=== PATIENT | female | born 1985 | race African-American/Black ===

== ENCOUNTER 2017-10-08 05:44 | Emergency (ER) | payer OTHER ==
[2017-10-08 06:01] VITALS: BMI 29.2
[2017-10-08] MEDS ORDERED: ALBUTEROL SO4 0.083% IH SOL 2.5 MG/3 ML VIAL.NEB. NEB ONE ×2 (06:05→06:09)
--- NOTE | 2017-10-08 06:20 | PDOC ---
History of Present Illness - General History Source: Patient Exam Limitations: No Limitations <Kavita Stein I - Last Filed: 10/08/17 06:25> - History of Present Illness Initial Comments: 10/08/17 06:56 Patient is a 32 year old female, that is 31 weeks with a significant past medical history of Asthma who presents to the ED with complaints of difficulty breathing that began earlier this morning. Patient reports waking up this morning and experiencing Sob, prompting her to call EMS and be brought to the ED for further evaluation. She reports being taken to [facility], stating she was told should could not be treated due to them not being a OB hospital followed transferring the patient to [facility]. Patient reports experiencing associated symptoms of dry non productive cough. 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 Denies chest pain, fevers, hills. Denies contact with sick individuals, out of state travelling. Denies dysuria, hematuria. Denies diarrhea, constipation. Denies any other symptoms. Allergies: None Social history: Former smoker. No alcohol. No illicit drugs. Surgical history: None PMD: Dr. Rooney Adult PE General: +Mild distress. Well-nourished well-developed individual, HEENT: Throat: Normal, tonsils normal, no erythema or exudate Neck: Supple, no meningeal signs, no lymphadenopathy Eyes::Pupils equal reactive and round, extraocular motion intact Chest: +Mild diffuse wheezing. +Tachypnic. Nontender to palpation Cardiac: S1-S2 normal, regular rate and rhythm, no murmurs rubs or gallops Respiratory: +Coughing. Lungs clear to auscultation bilateral Abdomen: +Abdomen gravid uterus consistent with 31 week . Soft, nondistended, normal bowel sounds, nontender to palpation diffusely Extremities: Warm, dry, no cyanosis, clubbing, or edema Skin: No rashes Neuro: Alert and oriented x3, nonfocal exam, grossly intact, normal gait Psych: Normal mood and affect <Rafal Espinoza - Last Filed: 10/08/17 06:57> - General Chief Complaint: Chest Pain Stated Complaint: SOB Time Seen by Provider: 10/08/17 06:10 Past History - Past Medical History Asthma: No Cancer: No Cardiac Disorders: No CVA: No COPD: No Diabetes: No HTN: No Seizures: No Thyroid Disease: No - Reproductive History Is Patient Now?: Yes (#): 4 Para: 1 Spontaneous : 1 - Suicide/Smoking/Psychosocial Hx Smoking History: Never smoked Have you smoked in the past 12 months: No Number of Cigarettes Smoked Daily: 2 Information on smoking cessation initiated: No Hx Alcohol Use: No Drug/Substance Use Hx: No Hx Substance Use Treatment: No <Kavita Stein I - Last Filed: 10/08/17 06:25> <Rafal Espinoza - Last Filed: 10/08/17 06:57> - Past Medical History Allergies/Adverse Reactions: Allergies Allergy/AdvReac Type Severity Reaction Status Date / Time No Known Allergies Allergy Verified 10/08/17 06:00 Home Medications: Ambulatory Orders Vitamins (Sjr) - 1 tab PO DAILY tablet 01/17/15 Albuterol Sulfate [Proventil HFA Inhaler -] 1 - 2 inh PO QID #1 inhaler Azithromycin 250 mg PO DAILY #4 tablet 10/08/17 Prednisone [Deltasone] 20 mg PO DAILY #8 tablet 10/08/17 *Physical Exam - Vital Signs Last Vital Signs Temp Pulse Resp BP Pulse Ox 103 H 20 108/64 95 10/08/17 06:00 10/08/17 06:00 10/08/17 06:00 10/08/17 06:00 <Kavita Stein I - Last Filed: 10/08/17 06:25> - Vital Signs Last Vital Signs Temp Pulse Resp BP Pulse Ox 103 H 20 108/64 95 10/08/17 06:00 10/08/17 06:00 10/08/17 06:00 10/08/17 06:00 <Rafal Espinoza - Last Filed: 10/08/17 06:57> ED Treatment Course - Medications Given in the ED: ED Medications Discontinued Medications Generic Name Dose Route Start Last Admin Trade Name Freq PRN Reason Stop Dose Admin Albuterol Sulfate 1 amp 10/08/17 06:05 10/08/17 06:11 Ventolin 0.083% Nebulizer Soln - NEB 10/08/17 06:06 1 amp ONCE ONE Administration <Kavita Stein Jon - Last Filed: 10/08/17 06:25> - Medications Given in the ED: ED Medications Discontinued Medications Generic Name Dose Route Start Last Admin Trade Name Lizandro PRN Reason Stop Dose Admin Albuterol Sulfate 1 amp 10/08/17 06:05 10/08/17 06:11 Ventolin 0.083% Nebulizer Soln - NEB 10/08/17 06:06 1 amp ONCE ONE Administration <Rafal Espinoza - Last Filed: 10/08/17 06:57> *DC/Admit/Observation/Transfer <Kavita Stein I - Last Filed: 10/08/17 06:25> <Rafal Espinoza - Last Filed: 10/08/17 06:57> Diagnosis at time of Disposition: Asthmatic bronchitis Qualifiers: Asthma severity: mild Asthma persistence: intermittent Asthma complication type : uncomplicated Qualified Code(s): J45.20 - Mild intermittent asthma, uncomplicated - Discharge Dispostion Disposition: HOME - Prescriptions Prescriptions: Albuterol Sulfate [Proventil HFA Inhaler -] 1 - 2 inh PO QID #1 inhaler Azithromycin 250 mg PO DAILY #4 tablet Prednisone [Deltasone] 20 mg PO DAILY #8 tablet - Patient Instructions Additional Instructions: Use your albuterol inhaler 2 puffs as often as every 4-6 hours if needed for wheezing or shortness of breath. Take the prednisone 40 mg a day for 4 days. I'm starting you on a Z-Rm to make sure you don't develop bronchitis secondary to your asthma exacerbation. Return to the emergency department immediately with ANY new, persistent or worsening symptoms. Continue any medications as previously prescribed by your physician. You should follow up with your primary doctor as soon as possible regarding today's emergency department visit. . Please make sure your doctor reviews the results of your emergency evaluation. Thank you for coming to the Emergency Department today for your care. It was a pleasure to see you today. Please note that your evaluation is INCOMPLETE until you follow-up with your doctor.
[2017-10-08] MEDS ORDERED: predniSONE 20 MG TABLET (UD) PO ONE (06:21)
[2017-10-08] MEDS ORDERED: AZITHROMYCIN 250 MG TABLET PO STA (06:22)
[2017-10-08] MEDS ORDERED: predniSONE 20 MG TABLET (UD) ONE (06:54)
[2017-10-08] MEDS ORDERED: AZITHROMYCIN 250 MG TABLET ONE (06:54)
[2017-10-08 08:08] VITALS: BP 103/63; PULSE 107; TEMP 98.2
--- NOTE | 2017-10-13 10:38 | EKG ---
Test Reason : Blood Pressure : / mmHG Vent. Rate : 097 BPM Atrial Rate : 097 BPM P-R Int : 154 ms QRS Dur : 080 ms QT Int : 342 ms P-R-T Axes : 069 065 042 degrees QTc Int : 434 ms NORMAL SINUS RHYTHM NORMAL ECG NO PREVIOUS ECGS AVAILABLE Confirmed by CODY ANTHONY, IVORY ([id number]) on 10/13/2017 10:37:41 AM Referred By: Confirmed By:IVORY ROSS MD
== END 2017-10-08 08:25 | disposition home or self-care (01) ==
LOC: JER 05:44
PROC: 3E0F7GC Introduction of Other Therapeutic Substance into Respiratory Tract, Via Natural or Artificial Opening (ICD-10-PCS; principal; 2017-10-08)
DX: O26.893 Other specified pregnancy related conditions, third trimester (principal); O99.513 Diseases of the respiratory system complicating pregnancy, third trimester; J45.20 Mild intermittent asthma, uncomplicated; Z3A.31 31 weeks gestation of pregnancy
CPT/HCPCS: 93005; 93010; 99281-25

== ENCOUNTER 2017-12-11 02:40 | Inpatient (IN) | payer OTHER ==
[~2017-12-11 02:40] MED LIST: CITRIC ACID/SODIUM CITRATE 30 ML UNIT-DOSE CUP PO ONE; ELECTROLYTE-148 SOLN 500 ML IV ONE
[2017-12-11] MEDS ORDERED: ELECTROLYTE-148 SOLN 1,000 ML IV SCH (03:10)
[2017-12-11] MEDS ORDERED: SUCCINYLCHOLINE CHLORIDE 200 MG/10 ML VIAL ONE (04:32)
[2017-12-11] MEDS ORDERED: PROPOFOL 20 ML ONE (04:32)
[2017-12-11] MEDS ORDERED: morphine SULFATE/Preservative Free 0.5 MG/ML (1cc Syringe) ONE (04:33)
[2017-12-11] MEDS ORDERED: SODIUM CHLORIDE 0.9% P/F 10 ML VIAL IJ ONE (04:45)
[2017-12-11] MEDS ORDERED: ceFAZolin SODIUM 1 GM VIAL ONE ×3 (04:45→18:25)
[2017-12-11] MEDS ORDERED: OXYTOCIN 10 UNITS/ML VIAL ONE (04:46)
[2017-12-11] MEDS ORDERED: KETOROLAC TROMETHAMINE 30 MG/1 ML VIAL ONE (04:48)
[2017-12-11] MEDS ORDERED: ePHEDrine SULFATE 50 MG/1 ML AMPULE ONE (04:49)
[2017-12-11 04:50] LABS: BASO % 0.1 % (0-2.0); MCH 32.8 pg (25.7-33.7); MCHC 34.4 g/dl (32.0-36.0); MEAN CELL VOLUME 95.3 fl (80-96); MEAN PLT VOLUME 8.4 fl (7.5-11.1); MONO % 5.4 % (3.8-10.2); NEUT % 74.5 % (42.8-82.8); PLATELET COUNT 222 K/MM3 (134-434); RBC 3.67 M/mm3 (3.60-5.2); RDW 13.8 % (11.6-15.6); WHITE BLOOD COUNT 10.7 K/mm3 (4.0-10.0)
[2017-12-11 04:52] VITALS: BMI 25.9
[2017-12-11 05:04] LABS: INR 0.92 (0.83-1.09); PROTHROMBIN TIME (PATIENT) 10.9 SEC (9.7-13.0)
[2017-12-11 05:20] LABS: ALK PHOS 143 U/L (45-117); ANION GAP 5 MMOL/L (8-16); BILIRUBIN,TOTAL 0.3 mg/dL (0.2-1); BLOOD UREA NITROGEN 8 mg/dL (7-18); CALCIUM 8.7 mg/dL (8.5-10.1); CHLORIDE 108 mmol/L (98-107); CO2 21 mmol/L (21-32); CREATININE 0.6 mg/dL (0.55-1.3); GLUCOSE,RANDOM 111 mg/dL (74-106); POTASSIUM 3.4 mmol/L (3.5-5.1); SGOT/AST 24 U/L (15-37); SGPT/ALT 31 U/L (13-61); SODIUM 135 mmol/L (136-145); TOT PROT 6.2 g/dl (6.4-8.2)
[2017-12-11] MEDS ORDERED: OXYTOCIN 20 UNITS in 0.9% NS 20 UNIT/1,000 ML INFUS.BAG IV ONE ×2 (05:20→09:53)
[2017-12-11] MEDS ORDERED: WITCH HAZEL 50% (TUCKS) 40 PAD/JAR PAD TP PRN (05:26)
[2017-12-11] MEDS ORDERED: METHYLERGONOVINE MALEATE 0.2 MG/1 ML AMP IM PRN (05:26)
[2017-12-11] MEDS ORDERED: BENZOCAINE 28 GM HEMORRHOIDAL OINTMENT PR PRN (05:26)
[2017-12-11] MEDS ORDERED: BENZOCAINE 20% 57 GM BOTTLE TP PRN (05:26)
[2017-12-11] MEDS ORDERED: diphenhydrAMINE HCL 25 MG CAPSULE (FP) PO PRN (05:26)
[2017-12-11] MEDS ORDERED: DEXTROSE 5%-LACTATED RINGERS 1,000 ML IV SCH (05:30)
[2017-12-11] MEDS ORDERED: OXYTOCIN 20 UNITS in 0.9% NS 20 UNIT/1,000 ML INFUS.BAG IV SCH (05:30)
--- NOTE | 2017-12-11 05:38 | HP ---
Past Medical History - Primary Care Physician PCP:: iMo Pro - Admission Chief Complaint: 40.5 weeks, labor , non reassuring heart History of Present Illness: 32 yo f g 8 [id number] edc by sono 12/06/17 40.5 weeks in labor, heart cat 2., poor BTB variability, tachy 160. contraction q 1 min,,cx 4 cm 80 vx -2 mi , no bleeding, no fever History Source: Patient Limitations to Obtaining History: No Limitations - Past Medical History Pulmonary: Yes: Asthma ...: 7 ...Para: 1 ...Term: 1 ...: 0 ...Spon : 1 ...Induced : 4 ...Multiple Gestation: 0 ...LMP: 03/01/17 ... Weeks Gestation by Dates: 40.5 ...EDC by Dates: 12/06/17 Infectious Disease: Yes: STD's (txed for chlamydia) - Past Surgical History Past Surgical History: Yes: None Hx Myomectomy: No Hx Transabdominal Cerclage: No - Smoking History Smoking history: Current every day smoker Have you smoked in the past 12 months: Yes Aproximately how many cigarettes per day: 4 - Alcohol/Substance Use Hx Alcohol Use: Yes (socially) History of Substance Use: reports: Marijuana (06/12/14 [facility] - Social History History of Recent Travel: No Home Medications - Allergies Allergies/Adverse Reactions: Allergies Allergy/AdvReac Type Severity Reaction Status Date / Time No Known Allergies Allergy Verified 10/08/17 08:29 - Home Medications Home Medications: Ambulatory Orders Vitamins (Sjr) - 1 tab PO DAILY tablet 01/17/15 Albuterol Sulfate [Proventil HFA Inhaler -] 1 - 2 inh PO QID #1 inhaler Azithromycin 250 mg PO DAILY #4 tablet 10/08/17 Prednisone [Deltasone] 20 mg PO DAILY #8 tablet 10/08/17 Review of Systems - Review of Systems Constitutional: reports: No Symptoms HENT: reports: No Symptoms Neck: reports: No Symptoms Cardiovascular: reports: No Symptoms Respiratory: reports: No Symptoms Gastrointestinal: reports: No Symptoms Genitourinary: reports: No Symptoms Breasts: reports: No Symptoms Reported Musculoskeletal: reports: No Symptoms Integumentary: reports: No Symptoms Neurological: reports: No Symptoms Endocrine: reports: No Symptoms Hematology/Lymphatic: reports: No Symptoms Psychiatric: reports: No Symptoms Physical Exam - Maternity Vital Signs: Vital Signs Temperature 98.4 F 12/11/17 04:34 Pulse Rate 81 12/11/17 04:34 Respiratory Rate 17 12/11/17 04:34 Blood Pressure 107/52 L 12/11/17 04:34 O2 Sat by Pulse Oximetry (%) Constitutional: Yes: Well Nourished, No Distress, Calm Eyes: Yes: WNL, Conjunctiva Clear, EOM Intact HENT: Yes: WNL, Atraumatic, Normocephalic Neck: Yes: WNL, Supple, Trachea Midline Cardiovascular: Yes: WNL, Regular Rate and Rhythm Breast(s): Yes: WNL - Abdominal Exam/OB Fundal Height: 40 Number of Fetuses: Single Presentation: Vertex Contractions: Yes Regularity: Regular Intensity: Strong Monitor Mode: External Heart Rate Location: [facility] Category: II Accelerations: None Decelerations: None - Vaginal Exam/OB Vaginal Bleediing: No Speculum Exam: No Dilatation (cm): 4 cm Effacement (%): 80 Amniotic Membrane Status: Intact Presentation: Vertex/Position Station: -2 - Physical Exam Musculoskeletal: Yes: WNL Extremities: Yes: WNL Edema: Yes Edema: LLE: Trace, RLE: Trace Deep Tendon Reflex Grade: Normal +2 Psychiatric: Yes: WNL - Labs Lab Results: CBC, BMP 12/11/17 04:00 12/11/17 04:00 Hemorrhage Risk Assessment - Risk Factors Medium Risk Factors: Yes: None High Risk Factors: Yes: None Risk Score: 1 Risk Level: Medium Risk Problem List - Problems (1) Post term over 40 weeks Code(s): O48.0 - POST-TERM (2) First stage of labor established Code(s): [id number] - (3) Non-reassuring electronic monitoring tracing Code(s): O76 - ABNLT IN HEART RATE AND RHYTHM COMP LABOR AND DELIVERY Assessment/Plan c/s rba discussed
[2017-12-11] MEDS ORDERED: ONDANSETRON 4 MG/2 ML VIAL IVPUSH PRN (05:39)
[2017-12-11] MEDS ORDERED: ALBUTEROL SO4 8 GM HFA INHALER IH PRN (05:42)
[2017-12-11 06:57] LABS: ARTERIAL BLOOD GAS BASE EXCESS -4.4 meq/l (-2-2); ARTERIAL BLOOD GAS PCO2 52.4 mmHg (35-45); ARTERIAL BLOOD GAS pH 7.27 (7.35-7.45)
[2017-12-11 07:38] LABS: ARTERIAL BLD GAS O2 SATURATION 30.5 % (90-98.9); ARTERIAL BLOOD GAS PO2 18.1 mmHg (80-100)
[2017-12-11 07:39] LABS: VENOUS PC02 61.5 mmHg (38-52); VENOUS PH 7.21 (7.32-7.42); VENOUS PO2 14.7 mmHg (28-48)
[2017-12-11 07:45] LABS: COCAINE, UR NEGATIVE ng/ml (CUTOFF=300); METHADONE, UR NEGATIVE ng/ml (CUTOFF=300); OPIATES, URI NEGATIVE ng/ml (CUTOFF=300); PHENCYCLIDINE,URINE NEGATIVE ng/ml (CUTOFF=25); URINE AMPHETAMINES NEGATIVE ng/ml (CUTOFF=500); URINE BARBITURATES NEGATIVE ng/ml (CUTOFF=200); URINE BENZODIAZEPINES NEGATIVE ng/ml (CUTOFF=200)
[2017-12-11] MEDS ORDERED: IBUPROFEN 800 MG/8 ML IJ IVPB ONE (07:56)
[2017-12-11] MEDS: IBUPROFEN 800 MG/8 ML IJ IVPB PRN ×2 (08:02→20:38)
[2017-12-11] MEDS ORDERED: DEXTROSE 5%-WATER - 50 ML IVPB ONE ×2 (09:35→18:25)
[2017-12-11] MEDS: CEFAZOLIN 1 GM in DEXTROSE 5%-WATER - 50 ML IVPB SCH ×2 (09:58→18:30)
[2017-12-11] MEDS: OXYTOCIN 20 UNITS in 0.9% NS 20 UNIT/1,000 ML INFUS.BAG IV SCH ×2 (09:58→20:38)
[2017-12-11] MEDS: ENOXAPARIN NA (PORCINE) 40 MG/0.4 ML DISP.SYRIN SQ SCH (09:59)
[2017-12-11] MEDS ORDERED: TUBERCULIN PPD 5 TU/0.1ML SYRINGE (IN PATIENT USE ONLY) ID ONE (10:00)
[2017-12-11] MEDS ORDERED: ONDANSETRON 4 MG/2 ML VIAL ONE (13:21)
[2017-12-12] MEDS: SIMETHICONE 80 MG TAB.CHEW (FP) PO PRN ×3 (04:22→20:56)
[2017-12-12] MEDS: ACETAMINOPHEN 325 MG TABLET (FP) PO PRN (04:23)
[2017-12-12] MEDS: IBUPROFEN 600 MG TABLET (FP) PO PRN ×3 (04:23→20:56)
[2017-12-12] MEDS ORDERED: BISACODYL 10 MG SUPP.RECT PR PRN (05:26)
[2017-12-12 06:36] LABS: HBsAG SCREEN Negative (Negative)
[2017-12-12] MEDS: oxyCODONE HCL 5 MG TABLET PO PRN ×3 (06:38→20:56)
[2017-12-12 07:36] LABS: BASO % 0.5 % (0-2.0); EOS % 1.5 % (0-4.5); HEMATOCRIT 31.5 % (32.4-45.2); HEMOGLOBIN 10.5 GM/dL (10.7-15.3); LYMPH % 16.2 % (8-40); MCH 32.1 pg (25.7-33.7); MCHC 33.4 g/dl (32.0-36.0); MEAN PLT VOLUME 8.2 fl (7.5-11.1); MONO % 6.9 % (3.8-10.2); NEUT % 74.9 % (42.8-82.8); PLATELET COUNT 227 K/MM3 (134-434); RBC 3.28 M/mm3 (3.60-5.2); RDW 13.9 % (11.6-15.6); WHITE BLOOD COUNT 11.4 K/mm3 (4.0-10.0)
--- NOTE | 2017-12-12 08:42 | PN ---
Progress Note, Physician Chief Complaint: day 1 s/p csection with spinal/duramorph - Current Medication List Current Medications: Active Medications Acetaminophen (Tylenol -) 650 mg PO Q4H PRN PRN Reason: PAIN LEVEL 4 - 6 Last Admin: 12/12/17 04:23 Dose: 650 mg Albuterol Sulfate (Ventolin Hfa Inhaler -) 1 - 2 puff IH QID PRN PRN Reason: ASTHMA Benzocaine (Americaine 20% [place] -) 1 spray TP PRN PRN PRN Reason: Pain - Topical Benzocaine (Americaine Ointment -) 1 applic IA PRN PRN PRN Reason: Pain - Topical Bisacodyl (Dulcolax Suppository -) 10 mg IA PRN PRN PRN Reason: CONSTIPATION Diphenhydramine HCl (Benadryl -) 25 mg PO Q8H PRN PRN Reason: FOR ITCHING Diphenhydramine HCl (Benadryl Injection -) 25 mg IVPUSH Q4H PRN PRN Reason: Pruritis Diphtheria/Tetanus/Acell Pertussis (Boostrix -) 0.5 ml IM .ONCE ONE Stop: 12/12/17 10:01 Enoxaparin Sodium (Lovenox -) 40 mg SQ DAILY TYE Last Admin: 12/11/17 09:59 Dose: Not Given Ibuprofen (Motrin -) 600 mg PO Q4H PRN PRN Reason: PAIN LEVEL 1 - 3 Last Admin: 12/12/17 04:23 Dose: 600 mg Ibuprofen (Caldolor Injection -) 800 mg IVPB Q6H PRN PRN Reason: PAIN > 5 if PO not effective. Last Admin: 12/11/17 20:38 Dose: 800 mg Influenza Virus Vaccine Quadrival (Flulaval Quad [id number]) 60 mcg IM .ONCE ONE Stop: 12/12/17 10:01 Methylergonovine Maleate (Methergine Injection -) 0.2 mg IM Q4H PRN PRN Reason: EXCESSIVE BLEEDING Ondansetron HCl (Zofran Injection) 4 mg IVPUSH Q4H PRN PRN Reason: NAUSEA Last Admin: 12/11/17 13:27 Dose: 4 mg Oxycodone HCl (Roxicodone -) 5 mg PO Q4H PRN PRN Reason: PAIN LEVEL 4 - 6 Last Admin: 12/12/17 06:38 Dose: 5 mg Oxycodone HCl (Roxicodone -) 10 mg PO Q4H PRN PRN Reason: PAIN LEVEL 7 - 10 Pneumococcal 13-Valent Conj Vacc (Prevnar 13 Syringe -) 0.5 ml IM .ONCE ONE Stop: 12/12/17 10:01 Senna/Docusate Sodium (Pericolace -) 2 tablet PO HS PRN PRN Reason: CONSTIPATION Simethicone (Mylicon -) 80 mg PO Q4H PRN PRN Reason: GAS Last Admin: 12/12/17 04:22 Dose: 80 mg Witch Michaela/Glycerin (Tucks Pads -) 1 pad TP PRN PRN PRN Reason: Pain - Topical - Objective Vital Signs: Vital Signs Temperature 98.6 F 12/12/17 05:19 Pulse Rate 75 12/12/17 05:19 Respiratory Rate 18 12/12/17 05:19 Blood Pressure 97/53 L 12/12/17 05:19 O2 Sat by Pulse Oximetry (%) 99 12/11/17 07:00 Labs: CBC, BMP 12/12/17 06:30 12/11/17 04:00 INR, PTT INR 0.92 (0.83-1.09) 12/11/17 04:00 Assessment/Plan Doing well after spinal for emergent c/s. No back pain, MALHOTRA, pain well controlled. No anesthetic issues/complications.
[2017-12-12] MEDS: ENOXAPARIN NA (PORCINE) 40 MG/0.4 ML DISP.SYRIN SQ SCH (09:25)
--- NOTE | 2017-12-12 09:52 | PN ---
Progress Note (short form) - Note Progress Note: pod 1 s/p c/s , doing well, passing gas . no excess vaginal bleeding CBC, BMP 12/12/17 06:30 12/11/17 04:00 Last Vital Signs Temp Pulse Resp BP Pulse Ox 98.6 F 75 18 97/53 L 99 12/12/17 05:19 12/12/17 05:19 12/12/17 05:19 12/12/17 05:19 12/11/17 07:00 abdomen soft, no distension, no cva incision dry, clean no calf tenderness lochia mild plan ambulate , advance diet Problem List - Problems (1) Post term over 40 weeks Code(s): O48.0 - POST-TERM (2) First stage of labor established Code(s): FSS0401 - (3) Non-reassuring electronic monitoring tracing Code(s): O76 - ABNLT IN HEART RATE AND RHYTHM COMP LABOR AND DELIVERY
[2017-12-12] MEDS ORDERED: PNEUMOC 13-VAL CONJ-DIP CRM/PF 0.5 ML DISP.SYRIN IM ONE (10:00)
[2017-12-12] MEDS ORDERED: DIPHTH,PERTUSS(ACELL),TET 0.5 ML DISP.SYRIN IM ONE (12:00)
[2017-12-12] MEDS ORDERED: FLU VACCINE QUAD 60 MCG/0.5 ML (MDV 18-19) IM ONE (12:00)
[2017-12-12] MEDS ORDERED: PNEUMOCOCCAL 23 VACCINE 0.5 ML VIAL IM ONE (13:00)
--- NOTE | 2017-12-12 14:52 | OP ---
DATE OF OPERATION: 12/12/2017 PREOPERATIVE DIAGNOSES: at 40.5 weeks, labor, nonreassuring heart rate. POSTOPERATIVE DIAGNOSES: at 40.5 weeks, labor, nonreassuring heart rate. PROCEDURE: Primary low segment transverse section. SURGEON: Mio Pro MD FLUX MIXER: ALESSIA Webster ANESTHESIA: Spinal. ESTIMATED BLOOD LOSS: 500 mL. OPERATION: The patient was taken to the operating room and underwent adequate spinal anesthesia. The abdomen and perineum were prepped, draped. A Pfannenstiel abdominal skin incision was made and the abdominal wall was cut [id number] until peritoneum was exposed and incised. Upon entering the abdominal cavity, the lower uterine segment was identified and uterovesical fold of peritoneum was established. Bladder was pushed down with the lower blade of the [place] retractor in the pelvis. A low transverse uterine incision was made and the incision extended laterally. The amniotic sac was entered. Clear fluid. Head delivered from occiput posterior position. Nasopharynx was suctioned and live baby was delivered without any difficulty. Placenta was delivered manually. Uterine cavity was cleaned of all remaining tissue. Uterine incision was closed in 2 layers, 1st layer with 0 Biosyn continuous suture, the 2nd layer with 0 Biosyn to imbricate the 1st layer. The bladder flap was closed with 0 Biosyn continuous suture. Both tubes and ovaries were checked; were normal. No active bleeding was seen. All the lap pad, sponge, and instrument counts were correct and the peritoneum was closed with 0 Biosyn continuous suture, muscles were brought together with interrupted suture of 0 Biosyn, fascia was closed with 0 Biosyn continuous suture, subcutaneous fat with interrupted suture of 0 Biosyn, and the skin was closed with vania. The patient tolerated the procedure well, left the OR in good condition. [place] [id number]
[2017-12-12] MEDS: SENNOSIDES/DOCUSATE COMBO (SENNA PLUS) TABLET (UD) PO PRN (20:57)
[2017-12-13] MEDS: IBUPROFEN 600 MG TABLET (FP) PO PRN ×5 (00:47→22:18)
[2017-12-13] MEDS: SIMETHICONE 80 MG TAB.CHEW (FP) PO PRN ×5 (00:47→22:18)
[2017-12-13] MEDS: oxyCODONE HCL 5 MG TABLET PO PRN ×5 (00:48→22:18)
--- NOTE | 2017-12-13 07:53 | PN ---
Progress Note (short form) - Note Progress Note: pod 2 doing well, no c/o , passing gas. ambulating CBC, BMP 12/12/17 06:30 12/11/17 04:00 Last Vital Signs Temp Pulse Resp BP Pulse Ox 98.6 F 88 18 109/68 99 12/12/17 22:00 12/12/17 22:00 12/12/17 22:00 12/12/17 22:00 12/11/17 07:00 abdomen soft, no distension, no cva incison dry, clean no excess vaginal bleeding no calf tenderness plan ambulate, cbcin am Problem List - Problems (1) Post term over 40 weeks Code(s): O48.0 - POST-TERM (2) First stage of labor established Code(s): [id number] - (3) Non-reassuring electronic monitoring tracing Code(s): O76 - ABNLT IN HEART RATE AND RHYTHM COMP LABOR AND DELIVERY
[2017-12-13] MEDS: ENOXAPARIN NA (PORCINE) 40 MG/0.4 ML DISP.SYRIN SQ SCH (09:45)
[2017-12-13 16:25] LABS: RUBELLA IgG ANTIBODY 1.38 index (Immune >0.99)
[2017-12-13] MEDS: SENNOSIDES/DOCUSATE COMBO (SENNA PLUS) TABLET (UD) PO PRN (22:18)
[2017-12-14 07:43] LABS: BASO % 0.9 % (0-2.0); EOS % 6.5 % (0-4.5); HEMATOCRIT 34.1 % (32.4-45.2); HEMOGLOBIN 11.4 GM/dL (10.7-15.3); LYMPH % 30.7 % (8-40); MCHC 33.4 g/dl (32.0-36.0); MEAN CELL VOLUME 95.7 fl (80-96); MEAN PLT VOLUME 7.7 fl (7.5-11.1); MONO % 9.4 % (3.8-10.2); NEUT % 52.5 % (42.8-82.8); PLATELET COUNT 311 K/MM3 (134-434); RBC 3.56 M/mm3 (3.60-5.2); RDW 13.9 % (11.6-15.6); WHITE BLOOD COUNT 5.8 K/mm3 (4.0-10.0)
[2017-12-14] MEDS: SIMETHICONE 80 MG TAB.CHEW (FP) PO PRN (07:57)
[2017-12-14] MEDS: IBUPROFEN 600 MG TABLET (FP) PO PRN (07:57)
[2017-12-14] MEDS: ACETAMINOPHEN 325 MG TABLET (FP) PO PRN (07:58)
[2017-12-14 09:44] VITALS: BP 104/83; PULSE 91; TEMP 98.1
[2017-12-14] MEDS: ENOXAPARIN NA (PORCINE) 40 MG/0.4 ML DISP.SYRIN SQ SCH (10:46)
--- NOTE | 2017-12-14 11:58 | PN ---
Post Progress Note Post Day: 3 Type of Delivery: Primary C/S Vital Signs: Vital Signs Temperature 98.1 F 12/14/17 09:39 Pulse Rate 91 H 12/14/17 09:39 Respiratory Rate 20 12/14/17 09:39 Blood Pressure 104/83 18 09:39 O2 Sat by Pulse Oximetry (%) 99 12/11/17 07:00 Breast Exam: Yes: Soft Uterus: Yes: Fundus Firm Abdomen/GI: Yes: Abdomen soft Lochia, amount: Small Perineum: Yes: Intact Activity: Ambulating - Labs Labs: CBC WBC 5.8 K/mm3 (4.0-10.0) 12/14/17 07:15 RBC 3.56 M/mm3 (3.60-5.2) L 12/14/17 07:15 Hgb 11.4 GM/dL (10.7-15.3) 12/14/17 07:15 Hct 34.1 % (32.4-45.2) 12/14/17 07:15 MCV 95.7 fl (80-96) 12/14/17 07:15 MCH 32.0 pg (25.7-33.7) 12/14/17 07:15 MCHC 33.4 g/dl (32.0-36.0) 12/14/17 07:15 RDW 13.9 % (11.6-15.6) 12/14/17 07:15 Plt Count 311 K/MM3 (134-434) D 12/14/17 07:15 MPV 7.7 fl (7.5-11.1) 12/14/17 07:15 Absolute Neuts (auto) 3.1 K/mm3 (1.5-8.0) 12/14/17 07:15 Neutrophils % 52.5 % (42.8-82.8) D 12/14/17 07:15 Lymphocytes % 30.7 % (8-40) D 12/14/17 07:15 Monocytes % 9.4 % (3.8-10.2) 12/14/17 07:15 Eosinophils % 6.5 % (0-4.5) H D 12/14/17 07:15 Basophils % 0.9 % (0-2.0) 12/14/17 07:15 Nucleated RBC % 0 % (0-0) 12/14/17 07:15 Assessment/Plan pod#3 continue care pain po
--- NOTE | 2017-12-17 16:40 | PATH ---
Surgical Pathology Report Patient Name: AMISH AGUIRRE Med. Rec. 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 Specimen(s) Received PLACENTA Clinical History , 40.5 weeks gestation, nonreassuring heart rate Final Diagnosis PLACENTA: THIRD TRIMESTER PLACENTA WITH ACUTE CHORIOAMNIONITIS. TRIVASCULAR CORD. Electronically Signed Víctor Parisi M.D. Gross Description The specimen is received fresh labeled placenta and is a 480 gram, 17.0 x 17.0 x 2.4 cm. placenta with attached membranes and umbilical cord. The attached membranes are gusman, translucent with focal opacities and insert marginally. The umbilical cord measures 21 cm. in length and averages 1 cm. in diameter. The cord inserts eccentrically, 5.5 cm. to the nearest margin. No true knots or strictures are identified. Cut surface of the umbilical cord reveals 3 vessels. The surface is clark-blue with minimal fibrin deposition and appropriate caliber vessels. The maternal surface is red-brown with focal defects. Sectioning reveals red sponge parenchyma, no lesions are identified. Plastic Boat Patcher sections are submitted in three cassettes as follows: 1- membrane rolls and umbilical cord; 2-3- full thickness sections of placenta. 12/16/2017 [facility]/16/2017
--- NOTE | 2017-12-20 16:37 | DS ---
Physical Exam-ELECTRIC CRANE OPERATOR Vital Signs: Vital Signs Temperature 98.1 F 12/14/17 09:39 Pulse Rate 91 H 12/14/17 09:39 Respiratory Rate 20 12/14/17 09:39 Blood Pressure 104/83 12/14/17 09:39 O2 Sat by Pulse Oximetry (%) 99 12/11/17 07:00 Constitutional: Yes: Well Nourished, No Distress, Calm Eyes: Yes: WNL, Conjunctiva Clear, EOM Intact HENT: Yes: WNL, Atraumatic, Normocephalic Neck: Yes: WNL, Supple, Trachea Midline Cardiovascular: Yes: WNL, Regular Rate and Rhythm Respiratory: Yes: WNL, Regular, CTA Bilaterally Gastrointestinal: Yes: WNL ...Rectal Exam: Yes: WNL Renal/: Yes: WNL ....Post : Yes: Uterus firm, Uterus non-tender, Uterus boggy Breast(s): Yes: WNL Musculoskeletal: Yes: WNL Extremities: Yes: WNL Edema: No Integumentary: Yes: WNL Wound/Incision: Yes: Clean/Dry, Well Approximated, [place] Intact Neurological: Yes: WNL, Alert, Oriented ...Motor Strength: WNL Psychiatric: Yes: WNL, Alert, Oriented Labs: CBC, BMP 12/14/17 07:15 12/11/17 04:00 Delivery - Delivery Section: Primary, Low Flap Transverse (no complication) Type of Anesthesia: Spinal EBL (cc): 500 Delivery, Single - Stages of Labor Date 1st Stage Initiatied: 12/11/17 Time 1st Stage Initiated: 01:00 Date of Delivery: 12/11/17 Time of Delivery: 04:52 Time Placenta Delivered: 04:53 Placenta: Yes: Expressed - Condition of Coat Presser/Construction Sales Manager Present: Yes Name: Aleena Simental Gender: Female Weight: 8 lb Position: OP Total Hours ROM (Hrs/Mins): 2 MINUTES - 1 Minute Total Score: 9 5 Minutes Total Score: 9 - [place] Feeding Plan Initial Plan: Elected not to breastfeed exclusively throughout hospitalization Discharge Summary Reason For Visit: LABOR Procedures: Principal: primary LST c/s Condition: Good - Instructions Referrals: Mio Pro MD [Staff Physician] - Disposition: HOME - Home Medications Comprehensive Discharge Medication List: Ambulatory Orders Vitamins (Sjr) - 1 tab PO DAILY tablet 01/17/15 Albuterol Sulfate [Proventil HFA Inhaler -] 1 - 2 inh PO QID #1 inhaler Ferrous Sulfate [Iron] 325 mg PO DAILY 12/11/17
== END 2017-12-14 13:40 | disposition home or self-care (01) | DRG 540 ==
LOC: JLDR 02:40 → J3W 17:00
PROVIDERS: ADMIT Obstetrics & Gynecology; ATTEND Obstetrics & Gynecology
PROC: 10D00Z1 Extraction of Products of Conception, Low, Open Approach (ICD-10-PCS; principal; 2017-12-12)
DX: O48.0 Post-term pregnancy (principal); O76 Abnormality in fetal heart rate and rhythm complicating labor and delivery; Z3A.40 40 weeks gestation of pregnancy; Z37.0 Single live birth
CPT/HCPCS: 36415; 36600; 80053; 80307; 82803; 85025; 85610; 85730; 86593; 86762; 86850; 86900; 86901; 87340; 87389; 88307-TC; 90686; 90715; 90732; G0008; G0009